=== PATIENT | male | born 1940 | race Caucasian/White ===

== ENCOUNTER 2017-09-18 22:17 | Emergency (ER) | payer MEDICARE ==
--- NOTE | 2017-09-18 23:29 | RAD ---
RIGHT SHOULDER RADIOGRAPHS THREE VIEWS 09/18/17 PROVIDED CLINICAL HISTORY: Right shoulder pain status post injury. FINDINGS: There is a mildly comminuted obliquely oriented fracture of the right distal clavicle distal to the c oracoclavicular ligaments. No additional fracture is evident. The glenohumeral relationship appears n ormal. Remote right sided rib fractures are seen. There is displacement of the distal clavicular frag ment by about one shaft width cranially with respect to the proximal fragment. IMPRESSION: Right clavicular fracture. POS: [facility]
--- NOTE | 2017-09-18 23:58 | CT ---
CT BRAIN 09/18/17 PROVIDED CLINICAL HISTORY: Fall. FINDINGS: Comparison is made with the study dated 10/28/14. The ventricular system appears normal in size and morphology. There is no evidence for intracranial h emorrhage or mass effect. The extracranial soft tissues and osseous structures demonstrate no acute a bnormality. IMPRESSION: No evidence for intracranial hemorrhage or mass effect. POS: [facility]
== END 2017-09-19 00:35 | disposition home or self-care (01) ==
LOC: ERS 22:17
DX: S42.031A Displaced fracture of lateral end of right clavicle, initial encounter for closed fracture (principal); I48.91 Unspecified atrial fibrillation; E11.9 Type 2 diabetes mellitus without complications; I10 Essential (primary) hypertension; Z79.4 Long term (current) use of insulin; W19.XXXA Unspecified fall, initial encounter
CPT/HCPCS: 70450

== ENCOUNTER 2017-10-01 10:07 | Outpatient (CLI) | payer MEDICARE | END 2017-10-01 10:08 | disposition home or self-care (01) | LOC: BICRAD 10:07 | PROVIDERS: ATTEND Specialist | DX: M25.511 Pain in right shoulder (principal); S43.004A Unspecified dislocation of right shoulder joint, initial encounter; W19.XXXA Unspecified fall, initial encounter ==

== ENCOUNTER 2018-04-01 13:22 | Outpatient (CLI) | payer MEDICARE ==
--- NOTE | 2018-04-01 15:29 | ULT ---
ARTERIAL DUPLEX SONOGRAM BILATERAL LOWER EXTREMITIES: HISTORY: Vascular disease. Poor wound healing. Claudication. FINDINGS: Good color and spectral Doppler flow are present. RIGHT: Triphasic waveform with no abnormally elevated peak systolic velocities within the common femoral and deep femoral and femoral arteries. Biphasic waveform within the popliteal, anterior tibial, dorsali s pedis, and posterior tibial arteries. LEFT: Triphasic waveform without abnormally elevated peak systolic velocities in the common femoral, deep f emoral, and femoral arteries. Biphasic waveform within the popliteal artery. Monophasic flow within the anterior tibial and dorsalis pedis arteries. Posterior tibia not well visualized. IMPRESSION: Good arterial flow within each lower extremity. Dampened pulsatility distally suggest s mall-vessel disease. POS: [facility]
== END 2018-04-01 13:23 | disposition home or self-care (01) ==
LOC: ULT 13:22
PROVIDERS: ATTEND Specialist
DX: I70.213 Atherosclerosis of native arteries of extremities with intermittent claudication, bilateral legs (principal)
CPT/HCPCS: 93923

== ENCOUNTER 2018-04-18 10:27 | Outpatient (CLI) | payer MEDICARE | END 2018-04-18 10:28 | disposition home or self-care (01) | LOC: BICRAD 10:27 | PROVIDERS: ATTEND Specialist | DX: S90.112A Contusion of left great toe without damage to nail, initial encounter (principal) ==

== ENCOUNTER 2018-12-18 11:57 | Emergency (ER) | payer MEDICARE ==
[2018-12-18] MEDS ORDERED: Metoprolol Tartrate 5 MG/5 ML VIAL ONE (12:58)
[2018-12-18] MEDS ORDERED: Digoxin 0.5 MG/2 ML AMP ONE (12:58)
[2018-12-18] MEDS ORDERED: Metoprolol Tartrate 50 MG TAB ONE (12:58)
--- NOTE | 2018-12-20 17:36 | EKG ---
Test Reason : Blood Pressure : / mmHG Vent. Rate : 138 BPM Atrial Rate : 125 BPM P-R Int : 000 ms QRS Dur : 140 ms QT Int : 350 ms P-R-T Axes : 000 049 005 degrees QTc Int : 530 ms Atrial fibrillation with rapid ventricular response Right bundle branch block Abnormal ECG Confirmed by OTILIA RAMIREZ, ANDREAS ([id number]), photograph editor ISHAAN MIR ([id number]) on 12/20/2018 5:35:50 PM Referred By: Confirmed By:ANDREAS BINGHAM MD
== END 2018-12-18 15:05 | disposition home or self-care (01) ==
LOC: ERS 11:57
DX: I48.2 Chronic atrial fibrillation (principal); I10 Essential (primary) hypertension; E11.9 Type 2 diabetes mellitus without complications; Z79.4 Long term (current) use of insulin; Z79.899 Other long term (current) drug therapy
CPT/HCPCS: 93005; 96374; 96375; J1160

== ENCOUNTER 2019-01-05 11:20 | Observation (INO) | payer MEDICARE ==
[2019-01-05 11:55] LABS: #Basophils 0.1 thou/uL (0.0-0.2); #Eosinphils 0.1 thou/uL (0.0-0.7); #Lymphocytes 2.6 thou/uL (1.20-3.40); #Monocytes 0.8 thou/uL (0.11-0.59); #Neutrophils 4.6 thou/uL (1.40-6.50); %Basophils 0.9 % (0.0-1.0); %Eosinophils 1.4 % (0.0-10.0); %Lymphocytes 31.5 % (21.0-51.0); %Neutrophils 56.2 % (42.0-75.0); Hemoglobin 14.3 g/dL (14.0-18.0); Mean Corpuscular HGB CONC 32.5 g/dL (32.0-36.0); Mean Corpuscular Hemoglobin 30.2 pg (27.0-31.0); Mean Corpuscular Volume 92.8 fL (78.0-98.0); Mean Platelet Volume 9.1 fL (7.4-10.4); Platelet Count 160 thou/uL (130-400); RBC Distribution Width 13.4 % (11.5-14.5); Red Blood Cell (RBC) Count 4.75 mill/uL (4.70-6.10); White Blood Cell (WBC) Count 8.2 thou/uL (4.8-10.8)
[2019-01-05 12:30] LABS: ALT (SGPT) 21 U/L (8-55); AST (SGOT) 17 U/L (5-34); Albumin 3.5 g/dL (3.4-4.8); Alkaline Phosphatase 86 U/L (40-150); Anion Gap 16 mmol/L (10-20); BUN (Urea Nitrogen) 24 mg/dL (8.4-25.7); Bilirubin, Total 0.7 mg/dL (0.2-1.2); CK (CPK) 90 U/L (30-200); Calc. Creatinine Clearance 0 mL/min (70-130); Calcium 9.4 mg/dL (7.8-10.44); Carbon Dioxide 26 mmol/L (23-31); Chloride 97 mmol/L (98-107); Estimated GFR-MDRD 27; Globulin 3.3 g/dL (2.4-3.5); Glucose 312 mg/dL (83-110); Potassium 4.6 mmol/L (3.5-5.1); Protein, Total 6.8 g/dL (5.8-8.1); Sodium 134 mmol/L (136-145)
--- NOTE | 2019-01-05 12:33 | RAD ---
FExam: Chest one view HISTORY:Chest pain Comparison: 03/11/2016 FINDINGS: Lungs: Bilateral, generalized interstitial prominence Cardiac silhouette:Enlarged cardiac silhouette Pulmonary vessels: Engorged Pleural Spaces: Mild pleural-based density at each inferior hemithorax Pneumothorax: None Left side cardiac pacing device remains. Osseous abnormalities: Chronic posttraumatic deformity of lateral right clavicle. Chronic posterior M attix quell involving lateral right ribs. IMPRESSION: Findings indicate CHF with associated pulmonary edema Mild bilateral pleural fluid is not excluded.
[2019-01-05 12:46] LABS: CKMB 1.6 ng/mL (0-6.6)
[2019-01-05] MEDS ORDERED: Aspirin Chewable 81 MG TAB ONE (13:10)
[2019-01-05] MEDS ORDERED: Enoxaparin Sodium 100 MG/ML SYRINGE ONE (13:10)
[2019-01-05 16:04] LABS: Troponin I 0.025 ng/mL (< 0.028)
[2019-01-05] MEDS ORDERED: Nitroglycerin 0.4 MG TAB (25 Tab Bottle) ONE (19:00)
[2019-01-05] MEDS ORDERED: Nitroglycerin 0.4 MG TAB (25 Tab Bottle) SL PRN (21:13)
[2019-01-05] MEDS ORDERED: Dextrose 5% in Water 1,000 ML IV PRN (21:20)
[2019-01-05] MEDS ORDERED: Dextrose 50% Abboject 50 ML SYRINGE IVP PRN (21:20)
[2019-01-05] MEDS ORDERED: Insulin Glargine 30 UNITS in Pre-Filled Syringe 1 EACH SC SCH (21:30)
[2019-01-05] MEDS: traMADol HCl 50 MG TAB PO PRN (22:16)
--- NOTE | 2019-01-06 02:46 | HP ---
CHIEF COMPLAINT ON ADMISSION: Chest pain. HISTORY OF PRESENT ILLNESS: The patient is a 78-year-old male with diabetes and known coronary artery disease, having had a 5-vessel bypass back in [address] Kline. This chest pain began on the day prior to admission, radiating to his jaw and both arms. It was relieved by nitroglycerin and then the episode would repeat itself up to 5 times on that day. On the day of admission, he had 3 episodes, but he had woke up with blurry vision in his left eye. He had gone to Dr. Hernandez's office for evaluation and they referred him to the ER once he told history of the chest pain and the vision changes. He reports 30% vision reduction in his left eye. They had no other explanation for that. 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 Trying to get that under control, he stopped steroid therapy for that several days ago. He has seen Dr. Oh several weeks ago and began on what sounds like metoprolol and digoxin, but he states he has been uncomfortable taking his medicines and has stopped them. His initial enzymes are negative and so he is placed in observation for further workup and cardiology consultation. PAST MEDICAL HISTORY: As mentioned above, coronary artery disease, atrial fibrillation, insulin-dependent diabetes, hypertension, pemphigus, angina, GERD, BPH, history of renal insufficiency, obstructive sleep apnea, diabetic peripheral neuropathy. PAST SURGICAL HISTORY: Includes the aforementioned 5-vessel coronary artery bypass done in [address] Kline. He has also had an uvulopalatoplasty, upper and lower gastroendoscopy, cystoscopy, pacemaker placement in 2006. He also had 2 heart ablations and a stent placed in 02/29/2016. SOCIAL HISTORY: He is . 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 He does not smoke or drink alcoholic beverages. ALLERGIES: HE HAS ALLERGIES TO CODEINE SULFATE AND SULFUR. MEDICATIONS ON ADMISSION: Include; 1. Furosemide 40 mg every Saturday, Saturday, Saturday. 2. Imdur 120 mg q.a.m. 3. Carvedilol 25 mg b.i.d. 4. Diltiazem 60 mg t.i.d. 5. Aspirin 81 mg daily. 6. Hydroxyzine 50 mg q.i.d. 7. Levemir 30 units subcu at bedtime. 8. NovoLog Pen 5 to 20 units before meals. 9. Hydroxyzine 25 mg two tabs at bedtime. 10. Ferrous sulfate 325 daily. REVIEW OF SYSTEMS: GENERAL: He denies chills, fever, but he has been easily fatigued and dyspneic with minimal exertion. HEENT: Eyes, he reports diminished vision about 30% in his left eye. No drainage, ulcerations, or pain from ears, nose, or throat. CHEST: Has shortness of breath with exertion, but denies cough or wheezing. CARDIOVASCULAR: He is having substernal chest pain radiating to his jaw and his arm. Denies palpitations. GI: Denies nausea, vomiting, diarrhea. : Denies dysuria, blood in urine or stool or urinary frequency. MUSCULOSKELETAL: Reports back pain with diffuse arthritis in hands and joints. SKIN: Diffuse bullous rash with blisters that pop up at pressure points, diagnosed as pemphigus. NEUROLOGIC: Denies confusion, trouble with mentation, paresthesias, hypesthesias, anesthesias. ENDOCRINE: He has no polydipsia, polyuria with blood sugars have been running around 200. PHYSICAL EXAMINATION: At the time of admission, VITAL SIGNS: Blood pressure 124/58, pulse 80, respirations 20, temperature 98 with pain scale 0. O2 saturation 98% on room air. GENERAL: This is a well-developed, well-nourished, male, alert, oriented, and cooperative. HEENT: Normocephalic, atraumatic. Pupils with diminished reactivity to light at 2 mm each. Arcus senilis bilaterally. TMs, nares, and pharynx are clear. NECK: Supple. Trachea midline. No mass. No bruit. BACK: Straight, nontender. CHEST: Clear to auscultation. HEART: Regular rate and rhythm without murmur. ABDOMEN: Soft, nontender, unable to appreciate organomegaly. : Deferred. EXTREMITIES: Without clubbing, cyanosis, or edema. There is normal range of motion present. SKIN: With the aforementioned bullous rash in different areas, mainly on his buttocks at this time, bullous in nature blisters. NEURO: Cranial nerves are intact. Gait and cerebellar function intact. Sensory exam is intact except for paresthesias up to his mid lower leg on both legs. LABORATORY DATA: On exam, WBC 8.2, hemoglobin 14.3, hematocrit 44.1, platelets at 160. Sodium 134, potassium 4.6, chloride 97, BUN 24, creatinine 2.33 with a GFR of 27, glucose at 312 on admission. BNP slightly elevated at 266. Troponin I is slightly elevated at 0.03 x2. Liver functions normal. EKG shows no change from old EKGs. ASSESSMENT: 1. Angina, stable and usually related to exertion. 2. History of coronary artery disease. 3. Insulin-dependent diabetes. 4. Hypertension. 5. Pemphigus. PLAN: Will be echocardiogram, consultation with Cardiology, nitroglycerin sublingual p.r.n., and serial re-evaluation. We may need neurological consultation to further evaluate his visual loss. Job ID: [id number] [facility]
[2019-01-06 05:21] LABS: Hemoglobin A1c 8.1 % (4.0-6.0)
[2019-01-06 05:25] LABS: Anion Gap 10 mmol/L (10-20); BUN (Urea Nitrogen) 22 mg/dL (8.4-25.7); Calc. Creatinine Clearance 43 mL/min (70-130); Calcium 8.6 mg/dL (7.8-10.44); Carbon Dioxide 30 mmol/L (23-31); Chloride 101 mmol/L (98-107); Estimated GFR-MDRD 31; Glucose 217 mg/dL (83-110); Sodium 137 mmol/L (136-145)
[2019-01-06] MEDS: Aspirin Chewable 81 MG TAB PO SCH (08:46)
[2019-01-06] MEDS: hydrOXYzine 25 MG TAB PO SCH ×4 (08:46→20:42)
[2019-01-06] MEDS ORDERED: Carvedilol 25 MG TAB PO SCH (09:00)
[2019-01-06] MEDS: traMADol HCl 50 MG TAB PO PRN ×2 (10:26→17:11)
--- NOTE | 2019-01-06 10:58 | CON ---
DATE OF CONSULTATION: 01/06/2019 REASON FOR ADMISSION: Unstable angina, refractory angina. HISTORY OF PRESENT ILLNESS: Mr. Pascual is a very pleasant 78-year-old gentleman with a long history of coronary disease. The patient ultimately did undergo cardiac bypass surgery x5 in 2016. He unfortunately continued to have angina following that and was found to have stenosis in a ramus branch of a mis-branch graft and also diffuse distal disease. He underwent stent implantation of the ramus vein graft, but continued to have angina. The patient has had angina off and on over the years of various intensities. Recently, he was found to have a very rapid heart rate. He was asked to go on metoprolol and diltiazem, but the pain apparently persisted and he thought the medicine was causing the angina. Therefore, he stopped taking those medicines a few days ago. He presented to our office yesterday complaining of pain at rest and was sent to the emergency room. PAST HISTORY: 1. Chronic atrial fibrillation, has declined anticoagulation. He understands stroke risk. 2. Previous pacemaker insertion. 3. Previous bypass. 4. Previous stent implantation. MEDICATIONS: At home, he was not taking the diltiazem, digoxin, metoprolol or carvedilol on a routine basis. He was taking the aspirin. ALLERGIES: SULFA. OTHER PAST HISTORY: Renal insufficiency. REVIEW OF SYSTEMS: CONSTITUTIONAL: No significant weight gain or loss. HEENT: Vision, no changes. Hearing, no changes. PULMONARY: No cough or wheezing. GASTROINTESTINAL: No nausea, vomiting, or diarrhea. SKIN: No rashes. NEUROLOGIC: No unilateral weakness or numbness. PSYCHIATRIC: No unusual depression or anxiety. FAMILY HISTORY: Negative for heart disease at a young age. PHYSICAL EXAMINATION: GENERAL: This is a delightful gentleman, in no distress. VITAL SIGNS: Blood pressure 176/90, pulse 100 to 110 at rest with atrial fibrillation. LUNGS: Clear. CARDIAC: Irregularly irregular. ABDOMEN: Soft, nontender. EXTREMITIES: No clubbing or cyanosis. There is no edema. PERTINENT LABORATORY DATA: Creatinine is 2.05. Troponin 0.030, indeterminate. EKG, right bundle branch block, atrial fibrillation with rapid rate. ASSESSMENT: 1. Previous bypass surgery. 2. Renal failure, which is varying between stage 3 to 4. 3. Diabetes. 4. Diffuse distal disease. PLAN: 1. Resume metoprolol. 2. He says carvedilol drop his blood pressure too low and makes him feel dizzy. 3. Echocardiogram pending. 4. Continue diltiazem. 5. Discussed repeat catheterization. Discussed there would be some risk of renal insufficiency or injury to his kidneys. It is unclear how much further benefit can be obtained for percutaneous therapy. Therefore, he does decline that at this point. 6. Continue aspirin. 7. We will follow with you. 8. The patient does not wish to have catheterization unless he has just intractable angina. Does not agree to catheterization at this point. We will continue to follow with you. Job ID: [id number]
[2019-01-06] MEDS: Insulin Regular 300 UNITS/3 ML VIAL SC PRN ×2 (11:32→17:04)
[2019-01-06] MEDS: Insulin Glargine 30 UNITS in Pre-Filled Syringe 1 EACH SC SCH (20:42)
[2019-01-07] MEDS: traMADol HCl 50 MG TAB PO PRN ×2 (04:08→23:16)
[2019-01-07] MEDS: hydrOXYzine 25 MG TAB PO SCH ×4 (09:40→20:33)
[2019-01-07] MEDS: Aspirin Chewable 81 MG TAB PO SCH (09:40)
[2019-01-07] MEDS ORDERED: Communication Order-Pharmacy FS SCH (17:15)
[2019-01-07] MEDS: Sodium Chloride 0.9% 1,000 ML IV SCH (17:30)
--- NOTE | 2019-01-07 17:49 | PRG ---
DATE OF SERVICE: 01/07/2019 SUBJECTIVE: Mr. Pascual had recurrent jaw pain at rest early this morning. He required nitroglycerin and also pain medicine for resolution. His heart rate apparently was not elevated at that time. The patient continues to have resting angina. OBJECTIVE: VITAL SIGNS: His blood pressure 158/87, pulse is 70 to 100, atrial fibrillation. LUNGS: Clear. CARDIAC: Irregularly irregular. ABDOMEN: Soft and nontender. ASSESSMENT: 1. Previous bypass surgery. 2. Previous stent implantation. 3. History of renal failure stage 3 to 4. Did have some worsening renal function following cardiac catheterization in 2016. Creatinine went as high as 2.74. PLAN: 1. He is going to receive intravenous fluids. 2. Proceed to cardiac catheterization in view of the intractable angina. He understands risks including renal failure, stroke, heart attack, iodine allergy, loss of blood supply to leg or kidney, stent thrombosis, stent restenoses. He understands and wishes to proceed. He understands this is a difficult situation. Job ID: [id number]
[2019-01-07] MEDS: Insulin Glargine 30 UNITS in Pre-Filled Syringe 1 EACH SC SCH (20:34)
[2019-01-08] MEDS: Sodium Chloride 0.9% 1,000 ML IV SCH ×2 (05:34→18:45)
[2019-01-08] MEDS: Aspirin Chewable 81 MG TAB PO SCH (05:36)
[2019-01-08] MEDS: hydrOXYzine 25 MG TAB PO SCH ×4 (05:36→21:35)
[2019-01-08] MEDS ORDERED: Fentanyl 100 MCG/2 ML VIAL ONE (07:34)
[2019-01-08] MEDS ORDERED: Midazolam HCl 2 mg/2 ml Vial ONE (07:34)
[2019-01-08] MEDS ORDERED: Diazepam 5 MG TAB PO SCH (08:00)
[2019-01-08] MEDS ORDERED: Sodium Chloride 0.9% 200 ML IV PRN (08:24)
[2019-01-08] MEDS ORDERED: Nitroglycerin 0.4 MG TAB (25 Tab Bottle) SL PRN (08:24)
[2019-01-08] MEDS ORDERED: Iopamidol 370 76% 100 ML VIAL ONE (10:19)
[2019-01-08] MEDS: Insulin Regular 300 UNITS/3 ML VIAL SC PRN (12:04)
[2019-01-08] MEDS: traMADol HCl 50 MG TAB PO PRN (13:11)
[2019-01-08] MEDS ORDERED: Sodium Chloride 0.9% 250 ML 200 ML IVPB SCH (14:15)
[2019-01-08] MEDS ORDERED: Insulin Glargine 35 UNITS in Pre-Filled Syringe 1 EACH SC SCH (21:00)
[2019-01-09 05:19] LABS: Anion Gap 11 mmol/L (10-20); BUN (Urea Nitrogen) 17 mg/dL (8.4-25.7); Calc. Creatinine Clearance 53 mL/min (70-130); Calcium 8.7 mg/dL (7.8-10.44); Carbon Dioxide 27 mmol/L (23-31); Chloride 103 mmol/L (98-107); Estimated GFR-MDRD 40; Glucose 176 mg/dL (83-110); Potassium 4.2 mmol/L (3.5-5.1); Sodium 137 mmol/L (136-145)
[2019-01-09 08:11] VITALS: BP 170/93; TEMP 98.1
[2019-01-09] MEDS: hydrOXYzine 25 MG TAB PO SCH (09:46)
[2019-01-09] MEDS: Aspirin Chewable 81 MG TAB PO SCH (09:46)
--- NOTE | 2019-01-10 09:49 | EKG ---
Test Reason : Blood Pressure : / mmHG Vent. Rate : 108 BPM Atrial Rate : 117 BPM P-R Int : 000 ms QRS Dur : 140 ms QT Int : 332 ms P-R-T Axes : 000 -79 084 degrees QTc Int : 444 ms Atrial fibrillation with rapid ventricular response Left axis deviation Right bundle branch block -complete T wave abnormality, consider lateral ischemia Abnormal ECG Doubt ST elevation/WI Confirmed by AUGUSTUS RAMIREZ, RYAN Brandon ([id number]), photo editor RAMONA STEVENS ([id number]) on 01/10/2019 9:48:41 AM Referred By: Confirmed By:RYAN COFFMAN MD
== END 2019-01-09 12:20 | disposition home or self-care (01) ==
LOC: ERS 11:20 → ERHOLD 13:00 → 2SW 16:39
PROVIDERS: ADMIT Specialist; ATTEND Specialist
PROC: 4A023N7 Measurement of Cardiac Sampling and Pressure, Left Heart, Percutaneous Approach (ICD-10-PCS; principal; 2019-01-08)
PROC: B2111ZZ Fluoroscopy of Multiple Coronary Arteries using Low Osmolar Contrast (ICD-10-PCS; 2019-01-08)
PROC: B2131ZZ Fluoroscopy of Multiple Coronary Artery Bypass Grafts using Low Osmolar Contrast (ICD-10-PCS; 2019-01-08)
PROC: B2181ZZ Fluoroscopy of Left Internal Mammary Bypass Graft using Low Osmolar Contrast (ICD-10-PCS; 2019-01-08)
DX: I25.118 Atherosclerotic heart disease of native coronary artery with other forms of angina pectoris (principal); I25.82 Chronic total occlusion of coronary artery; I10 Essential (primary) hypertension; K21.9 Gastro-esophageal reflux disease without esophagitis; E11.42 Type 2 diabetes mellitus with diabetic polyneuropathy; N40.0 Benign prostatic hyperplasia without lower urinary tract symptoms; I48.91 Unspecified atrial fibrillation; G47.33 Obstructive sleep apnea (adult) (pediatric); Z79.4 Long term (current) use of insulin; Z79.82 Long term (current) use of aspirin; Z79.899 Other long term (current) drug therapy; Z88.2 Allergy status to sulfonamides; Z88.5 Allergy status to narcotic agent; Z98.890 Other specified postprocedural states; Z95.5 Presence of coronary angioplasty implant and graft
CPT/HCPCS: 71045; 76942; 80048 ×2; 80053; 82550; 82553; 82962 ×5; 83036; 83880; 84443; 84484 ×2; 85025; 93005; 93306; 93459; 94760; 96360; 96361 ×2; 96372; 99285; C1769; G0378 ×3; 36415; 36416; 99152; 99153; J1650; J1815; J1825; J2250; J3010; Q9967

== ENCOUNTER 2019-02-10 14:38 | Emergency (ER) | payer MEDICARE ==
[2019-02-10 17:40] LABS: #Basophils 0.1 thou/uL (0.0-0.2); #Eosinphils 0.1 thou/uL (0.0-0.7); #Lymphocytes 1.6 thou/uL (1.20-3.40); #Neutrophils 7.5 thou/uL (1.40-6.50); %Basophils 0.5 % (0.0-1.0); %Lymphocytes 15.7 % (21.0-51.0); %Monocytes 9.3 % (0.0-10.0); %Neutrophils 73.4 % (42.0-75.0); Hemoglobin 12.7 g/dL (14.0-18.0); Mean Corpuscular HGB CONC 33.3 g/dL (32.0-36.0); Mean Corpuscular Hemoglobin 30.9 pg (27.0-31.0); Mean Corpuscular Volume 92.9 fL (78.0-98.0); Mean Platelet Volume 8.7 fL (7.4-10.4); Platelet Count 213 thou/uL (130-400); RBC Distribution Width 12.6 % (11.5-14.5); White Blood Cell (WBC) Count 10.2 thou/uL (4.8-10.8)
--- NOTE | 2019-02-10 17:48 | RAD ---
RADIOGRAPH CHEST 1 VIEW: DATE: 02/10/2019 TIME: 5:34 PM HISTORY: Chest pain and cough with dyspnea COMPARISON: 01/05/2019 FINDINGS: Sternotomy wires. Cardiomegaly. Left subclavian dual lead pacemaker. Ectasia and tortuosity of thorac ic aorta. Pulmonary venous engorgement appears minimally worse now than before. Mild bilateral interstitial densities, especially lower lung zones, appear slightly worse now. Multiple old right ri b fracture deformities. No pneumothorax. IMPRESSION: 1. Evidence for at least mild congestive heart failure, possibly worsened compared to 01/05/2019. 2. Evidence of previous open-heart surgery. 3. Pacemaker .
[2019-02-10 17:55] LABS: ALT (SGPT) 9 U/L (8-55); AST (SGOT) 12 U/L (5-34); Albumin 3.6 g/dL (3.4-4.8); Alkaline Phosphatase 82 U/L (40-150); Anion Gap 13 mmol/L (10-20); BUN (Urea Nitrogen) 22 mg/dL (8.4-25.7); Bilirubin, Total 1.2 mg/dL (0.2-1.2); Calc. Creatinine Clearance 0 mL/min (70-130); Calcium 9.1 mg/dL (7.8-10.44); Carbon Dioxide 26 mmol/L (23-31); Chloride 97 mmol/L (98-107); Estimated GFR-MDRD 33; Globulin 3.8 g/dL (2.4-3.5); Glucose 252 mg/dL (83-110); Potassium 4.5 mmol/L (3.5-5.1); Protein, Total 7.4 g/dL (5.8-8.1); Sodium 131 mmol/L (136-145)
[2019-02-10] MEDS ORDERED: Furosemide 40 MG TAB ONE (20:52)
--- NOTE | 2019-02-14 10:31 | EKG ---
Test Reason : CP Blood Pressure : / mmHG Vent. Rate : 086 BPM Atrial Rate : 468 BPM P-R Int : 000 ms QRS Dur : 162 ms QT Int : 392 ms P-R-T Axes : 000 020 013 degrees QTc Int : 469 ms Atrial fibrillation with premature ventricular or aberrantly conducted complexes Right bundle branch block T wave abnormality, consider lateral ischemia Abnormal ECG Confirmed by LAVERNE NEWMAN ([id number]), associate entertainment editor RAMONA STEVENS ([id number]) on 02/14/2019 10:31:16 AM Referred By: Confirmed By:LAVERNE NEWMAN
== END 2019-02-10 21:13 | disposition home or self-care (01) ==
LOC: ERS 14:38
DX: I11.0 Hypertensive heart disease with heart failure (principal); I50.9 Heart failure, unspecified; E11.9 Type 2 diabetes mellitus without complications; I25.10 Atherosclerotic heart disease of native coronary artery without angina pectoris; I48.91 Unspecified atrial fibrillation; Z79.4 Long term (current) use of insulin
CPT/HCPCS: 36415; 71045; 80053; 83880; 84484; 85025; 87804; 93005; 94640; J7620

== ENCOUNTER 2019-02-12 09:19 | Inpatient (IN) | payer MEDICARE ==
--- NOTE | 2019-02-12 09:49 | RAD ---
EXAM: Single view of the chest HISTORY: Chest pain; atrial fibrillation COMPARISON: 02/10/2019 FINDINGS: Single view of the chest shows an enlarged but stable cardiomediastinal silhouette. The pa cemaker is unchanged in position. The patient is status post sternotomy. Chronic interstitial lung markings are present. There is no evidence of consolidation, mass, or pleural effusion. The bones are unremarkable. IMPRESSION: Cardiomegaly without evidence of acute cardiopulmonary disease
[2019-02-12 09:53] LABS: #Basophils 0.1 thou/uL (0.0-0.2); #Eosinphils 0.4 thou/uL (0.0-0.7); #Lymphocytes 1.3 thou/uL (1.20-3.40); #Neutrophils 7.3 thou/uL (1.40-6.50); %Basophils 0.6 % (0.0-1.0); %Eosinophils 4.1 % (0.0-10.0); %Lymphocytes 13.1 % (21.0-51.0); %Monocytes 9.6 % (0.0-10.0); %Neutrophils 72.7 % (42.0-75.0); Hemoglobin 12.3 g/dL (14.0-18.0); Mean Corpuscular HGB CONC 33.2 g/dL (32.0-36.0); Mean Corpuscular Hemoglobin 30.9 pg (27.0-31.0); Mean Platelet Volume 8.9 fL (7.4-10.4); Platelet Count 208 thou/uL (130-400); RBC Distribution Width 12.4 % (11.5-14.5); Red Blood Cell (RBC) Count 3.97 mill/uL (4.70-6.10)
[2019-02-12 10:18] LABS: ALT (SGPT) 10 U/L (8-55); AST (SGOT) 21 U/L (5-34); Albumin 3.5 g/dL (3.4-4.8); Alkaline Phosphatase 84 U/L (40-150); Anion Gap 18 mmol/L (10-20); BUN (Urea Nitrogen) 25 mg/dL (8.4-25.7); Bilirubin, Total 1.1 mg/dL (0.2-1.2); Calc. Creatinine Clearance 0 mL/min (70-130); Calcium 9.1 mg/dL (7.8-10.44); Carbon Dioxide 24 mmol/L (23-31); Chloride 99 mmol/L (98-107); Estimated GFR-MDRD 30; Globulin 3.5 g/dL (2.4-3.5); Glucose 245 mg/dL (83-110); Potassium 4.9 mmol/L (3.5-5.1); Sodium 136 mmol/L (136-145)
[2019-02-12 10:37] LABS: CKMB 1.1 ng/mL (0-6.6)
[2019-02-12 11:10] LABS: Digoxin 1.14 ng/mL (0.8-2.0)
[2019-02-12] MEDS ORDERED: Metoprolol Tartrate 5 MG/5 ML VIAL ONE ×2 (11:58→11:59)
[2019-02-12 13:21] LABS: Troponin I 0.089 ng/mL (< 0.028)
[2019-02-12 14:13] VITALS: BMI 29.7
[2019-02-12] MEDS ORDERED: Acetaminophen 325 MG TAB PO PRN (14:32)
[2019-02-12] MEDS ORDERED: Ondansetron ODT 4 MG TAB SL PRN (14:32)
[2019-02-12] MEDS ORDERED: Ondansetron PF 4 MG/2 ML Vial IVP PRN (14:32)
[2019-02-12] MEDS ORDERED: Dextrose 50% Abboject 50 ML SYRINGE IVP PRN (15:26)
[2019-02-12] MEDS ORDERED: Dextrose 5% in Water 1,000 ML IV PRN (15:26)
[2019-02-12 16:27] LABS: Troponin I 0.147 ng/mL (< 0.028)
[2019-02-12] MEDS: Insulin Regular 300 UNITS/3 ML VIAL SC PRN ×2 (17:49→22:19)
--- NOTE | 2019-02-12 19:20 | PRG ---
DATE OF SERVICE: 02/12/2019 SUBJECTIVE: Mr. Pascual presents to the hospital with recurrent chest pressure and pain in both arms. The emergency room physician indicated to me the patient is having heart rate to 150, although in the chart I do not see documentation of that. He is resting comfortably now. OBJECTIVE: VITAL SIGNS: His blood pressure 160/76 and pulse is in the 80s, it is irregular. LUNGS: Clear. CARDIAC: Irregularly irregular. ABDOMEN: Soft and nontender. EXTREMITIES: No edema. ASSESSMENT: 1. Coronary artery disease, previous bypass surgery, medical therapy is the only option. 2. Declined anticoagulation. 3. ? Rapid rates. PLAN: 1. Interrogate the device tomorrow. 2. Increase beta blockers and Cardizem. 3. If unable to control the heart rate, the other option would be to consider biventricular pacemaker insertion followed by AV junction ablation in view of the history of heart failure. Job ID: [id number]
[2019-02-12] MEDS ORDERED: Labetalol HCl 100 MG/20 ML VIAL ONE (20:48)
[2019-02-12] MEDS ORDERED: hydrOXYzine 25 MG TAB PO PRN (21:54)
[2019-02-12] MEDS ORDERED: Nitroglycerin 0.4 MG TAB 1 EACH SL PRN (21:56)
[2019-02-12] MEDS ORDERED: Carvedilol 6.25 MG TAB PO SCH (22:00)
[2019-02-13] MEDS: Ondansetron PF 4 MG/2 ML Vial SLOW IVP PRN (01:18)
[2019-02-13] MEDS: hydrALAZINE 20 MG/ML VIAL SLOW IVP PRN (02:04)
--- NOTE | 2019-02-13 02:51 | HP ---
CHIEF COMPLAINT: Chest pain. HISTORY OF PRESENT ILLNESS: The patient is a 78-year-old male with a history of atrial fibrillation and cardiac ablation, presenting to the ED via EMS with complaints of chest pain and rapid heart rate, that began about early this morning after taking an albuterol metered-dose inhaler treatment for dyspnea. His heart began to race. He began to get more short-winded and then began to have substernal chest pain. It was alleviated somewhat by the time he arrived at the ER. EMS had given him a 324 aspirin and some Cardizem en route. His heart rate was between 150 to 160. He also had palpitations, shortness of breath, and mild diaphoresis. No nausea or vomiting. PAST MEDICAL HISTORY: Includes, cardiac history, hospitalized in less than a month ago for angina where medical therapy was opted, coronary artery disease, arrhythmia with atrial fibrillation; type 2 diabetes, on insulin; hypertension, GERD, anxiety, pemphigus, angina, diabetic peripheral neuropathy, obstructive sleep apnea, BPH, renal insufficiency, and diabetic peripheral neuropathy. PAST SURGICAL HISTORY: Includes the aforementioned five-vessel coronary artery bypass [place] [address] Kline, uvulopalatoplasty, upper and lower gastroendoscopy, cystoscopy, pacemaker placement in 2006, two heart ablations and stent placed in February 2016. SOCIAL HISTORY: He is . 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 He does not smoke or drink alcoholic beverages. ALLERGIES: CODEINE AND SULFA. MEDICATIONS: On admission include; 1. Cardizem 60 mg t.i.d. 2. Imdur 120 mg daily. 3. Metoprolol succinate 50 mg b.i.d. 4. Lasix 20 mg q.a.m. 5. Aspirin 81 mg daily. 6. Hydroxyzine 50 mg q.i.d. p.r.n. itching. 7. Levemir 30 units subcu at bedtime. 8. NovoLog 5-20 units prior to meals. 9. Hydralazine 25 mg t.i.d. 10. Ferrous sulfate 325 mg a day. 11. Protonix 40 mg a day. 12. He also uses nitroglycerin sublingually when he has chest pain. REVIEW OF SYSTEMS: GENERAL: Denies fever, chills, but is significantly fatigued. HEENT: No sores or drainage from ear, nose, or throat. CHEST: With palpitations and pain. RESPIRATORY: Denies cough. He occasionally has dyspnea. GI: No nausea, vomiting, or diarrhea. : No blood in urine or stool or painful urination or frequency. MUSCULOSKELETAL: Has diffuse arthritis. SKIN: Has bullous lesions diffusely. Diagnosis of pemphigus. NEUROLOGIC: Denies trouble with mentation. He does have areas of anesthesia and hypoesthesia in the lower extremities. PHYSICAL EXAMINATION: At the time of admission, VITAL SIGNS: Blood pressure noted, pulse 93 and irregular, respirations 18, temperature 98.9. Pain scale 3/10. O2 saturation 93% on room air. GENERAL: This is an elderly male, alert, oriented, and cooperative. HEENT: Normocephalic, atraumatic. Pupils are equal, round, and reactive to light, 2-3 mm with diminished reactivity overall. Arcus senilis bilaterally. TMs, nares, and pharynx are clear. NECK: Supple. Trachea midline. No mass. CHEST: With good breath sounds bilaterally. HEART: Irregularly irregular without murmur. ABDOMEN: Mildly distended. No hepatosplenomegaly. Nontender. : Deferred. EXTREMITIES: Without clubbing, cyanosis, or edema. SKIN: With aforementioned bullous lesions diffusely in various stages of healing. NEUROLOGIC: Cranial nerves are intact. Gait and cerebral function are untested at this time. Sensory is grossly intact. There is neuropathy in the lower extremities with diminished sensation in the lower extremities. LABORATORY DATA: The lab on admission showed WBCs 10, hemoglobin 12.3, hematocrit 36.9 with platelets 208. Sodium is 136, potassium 4.9, chloride 99, CO2 of 24, BUN 25, creatinine 2.15 with a GFR of 30, glucose 245. Liver functions unremarkable. Troponins indeterminate from 0.029 up to 0.147. Chest x-ray shows cardiomegaly , but no acute process. ASSESSMENT: 1. Supraventricular tachycardia, currently suppressed with Cardizem drip. 2. Severe coronary artery disease with chronic, recurrent angina. 3. Insulin-dependent diabetes. 4. Hypertension. 5. Obstructive sleep apnea. 6. Severely dilated left atrium and mildly elevated pulmonary artery pressure per echocardiogram in December. PLAN: Increasing his dose of oral Cardizem. Cardiology consultation has already been obtained. We will serially re-evaluate him and maximize his medical treatment. 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 We will keep him comfortable as well as try to manage his blood sugars. Job ID: [id number] [email or web address]
[2019-02-13] MEDS: Insulin Regular 300 UNITS/3 ML VIAL SC PRN ×3 (04:30→17:16)
[2019-02-13 06:12] LABS: Anion Gap 10 mmol/L (10-20); BUN (Urea Nitrogen) 25 mg/dL (8.4-25.7); Calc. Creatinine Clearance 40 mL/min (70-130); Calcium 9.1 mg/dL (7.8-10.44); Carbon Dioxide 30 mmol/L (23-31); Chloride 98 mmol/L (98-107); Digoxin 1.26 ng/mL (0.8-2.0); Estimated GFR-MDRD 30; Glucose 304 mg/dL (83-110); Potassium 4.4 mmol/L (3.5-5.1); Sodium 134 mmol/L (136-145)
[2019-02-13 06:14] LABS: #Eosinphils 0.3 thou/uL (0.0-0.7); #Lymphocytes 1.2 thou/uL (1.20-3.40); #Monocytes 0.7 thou/uL (0.11-0.59); #Neutrophils 4.9 thou/uL (1.40-6.50); %Basophils 0.6 % (0.0-1.0); %Eosinophils 4.5 % (0.0-10.0); %Lymphocytes 16.4 % (21.0-51.0); %Monocytes 10.1 % (0.0-10.0); %Neutrophils 68.4 % (42.0-75.0); Hemoglobin 11.3 g/dL (14.0-18.0); Mean Corpuscular HGB CONC 32.6 g/dL (32.0-36.0); Mean Corpuscular Hemoglobin 30.1 pg (27.0-31.0); Mean Corpuscular Volume 92.2 fL (78.0-98.0); Mean Platelet Volume 9.3 fL (7.4-10.4); Platelet Count 209 thou/uL (130-400); RBC Distribution Width 12.3 % (11.5-14.5); Red Blood Cell (RBC) Count 3.76 mill/uL (4.70-6.10); White Blood Cell (WBC) Count 7.1 thou/uL (4.8-10.8)
[2019-02-13] MEDS: Digoxin 0.125 MG TAB PO SCH (08:48)
[2019-02-13] MEDS: Aspirin Chewable 81 MG TAB PO SCH (08:49)
[2019-02-13] MEDS: Spironolactone 25 MG TAB PO SCH (08:49)
[2019-02-13] MEDS: hydrALAZINE 25 MG TAB PO SCH ×3 (08:49→20:52)
[2019-02-13] MEDS: Carvedilol 6.25 MG TAB PO SCH ×2 (08:49→20:52)
[2019-02-13] MEDS: Sodium Chloride 0.9% (PF) 10 ML VIAL FS PRN (08:50)
[2019-02-13] MEDS: Pantoprazole 40 MG VIAL IVP SCH (08:50)
[2019-02-13] MEDS ORDERED: Diltiazem HCl CD 300 mg Capsule PO SCH (09:00)
--- NOTE | 2019-02-13 09:23 | PRG ---
DATE OF SERVICE: 02/13/2019 SUBJECTIVE: Mr. Pascual is feeling better today, but he does have a cough. He is not having chest pain, but he is in bed. OBJECTIVE: VITAL SIGNS: His heart rate is in the 90s even in supine and sometimes at 102 at rest. LUNGS: Clear. CARDIAC: Irregularly irregular. ABDOMEN: Soft, nontender. ASSESSMENT: 1. Atrial fibrillation, chronic, and rate very difficult to control. 2. History of diastolic congestive heart failure with increased BNP. 3. Coronary artery disease, medical therapy is the only option. 4. Diabetes. 5. Renal insufficiency, stage 3 to 4. Creatinine is at 2.15. PLAN: 1. Diltiazem has been increased. 2. He is on metoprolol. 3. He is on digoxin. 4. If the rate is not controlled, I would recommend consideration for AV junction ablation with the possibility of upgrading his pacemaker to a biventricular device. We will consult Dr. Bearden in case this is an ultimately necessary. I think, long-term, he probably will not be able to tolerate this high dose of diltiazem, will probably worsen his edema and heart failure. He would likely require upgrading his pacemaker to a biventricular device as he already has heart failure at the present time, even though his ejection fraction is within normal limits, he does clearly have diastolic heart failure. We will discuss with Dr. Bearden. Job ID: [id number]
--- NOTE | 2019-02-13 12:31 | PQF ---
DATE: 02-13-19 ATTN : DR. SEBASTIÁN ADAIR Please exercise your independent, professional judgment in responding to the clarification form. Clinical indicators are provided on the bottom of this form for your review Please check appropriate box(s): [ ] Acute Renal Failure (ARF) / Acute Kidney Injury (RACHEL) [ x ] Acute on Chronic Renal Failure please Specify Stage of CKD __III___ [ ] Other diagnosis [ ] Unable to determine In addition, please specify: Present on Admission (POA): [ ] Yes [ ] No [ ] Unable to determine National Kidney Foundation Guidelines for CKD Staging Stage I Kidney damage with normal or increased GFR GFR > 90 Stage II Kidney damage with mildly decreased GFR GFR 60-89 Stage III Kidney damage with moderately decreased GFR GFR 30- 59 Stage IV Kidney damage with severely decreased GFR GFR 16- 29 Stage V Kidney failure GFR<15 ESRD End Stage Renal Disease On dialysis Acute Renal Failure/Acute Kidney Failure defined as: Increases in SCr by (>) 0.3 mg/dl within 48 hours OR- Increases in SCr by (>) 1.5 times baseline, known or presumed to have occurred within the prior 7 days OR- Urine volume < 0.5 ml/kg/hour for 6 hours (KDIGO supplement 2012 for RIFLE/GERMAN criteria) For continuity of documentation, please document condition throughout progress notes and discharge summary. Thank You. CLINICAL INDICATORS - SIGNS / SYMPTOMS / LABS: GFR: 02-12-19: 30 02-13-19: 30 CREATININE: 02-12-19: 2.15 02-13-19: 2.15 BUN: 02-12-19: 25 02-13-19: 25 H&P: HX OF CAD, A FIB, DM 2, HTN, ANGINA, RENAL INSUFFICIENCY CONSULT NOTE DR. YOUNG 02-13-19: RENAL INSUFFICIENCY, STAGE 3 TO 4. RISK FACTORS: H&P: HX OF CAD, A FIB, DM 2, HTN, ANGINA, RENAL INSUFFICIENCY TREATMENTS: DAILY LABS (This form is maintained as a part of the permanent medical record) 2014 [employer], [employer]. All Rights Reserved [email or web address] Office: [phone] [facility]
--- NOTE | 2019-02-13 19:17 | CON ---
DATE OF CONSULTATION: 02/13/2019 I am seeing Mr. 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 His problems are, 1. Chronic atrial fibrillation. Recurrent atrial fibrillation, now persisting after multiple left atrial ablation procedures. 2. History of diastolic heart failure with preserved LVEF. A 2D echo from 01/07/2019 shows LVEF of 55% to 60%, severe left atrial enlargement, mild mitral regurgitation, [id number] tricuspid regurgitation, and mildly elevated pulmonary pressures. 3. Coronary artery disease, advanced. Left heart catheterization on 02/22/2016 shows 50% to 60% left main, diffuse LAD and diagonal with occluded SVG to diagonal, 99% ramus, and SVG to RCA 50% narrowed before the insertion site. LUCERO to LAD is patent with disease though. PTCA of the SVG to ramus intervened a 95% to 99% lesion. 4. CHADS-VASc score with heart failure, coronary vascular disease, age, hypertension, and diabetes, a total of 6. The patient is off anticoagulation on preference. 5. History of GERD. 6. History of obstructive sleep apnea. 7. History of renal insufficiency. 8. History of single-chamber pacemaker implantation. ALLERGIES: CODEINE AND SULFA. MEDICATIONS: At home included, 1. Cardizem. 2. Imdur. 3. Metoprolol succinate. 4. Lasix. 5. Aspirin. 6. Hydralazine. 7. Levemir. 8. NovoLog. SUBJECTIVE: Mr. Pascual is here with chest pain and rapid heart beatings started after his albuterol treatment. Heart began to race and had developed severe chest pains yesterday, and Cardizem was administered. Eventually, his heart rate has improved. He was treated with further diltiazem doses on top of his metoprolol and digoxin. Eventually, this morning he achieved some reasonable rate control. He is feeling better now. He has no more chest pains and he does not pass out. No stroke-like symptoms at this time. Denies bleeding issues. No fever, chills, or cough. Rest of 12-point system otherwise unremarkable. PAST MEDICAL HISTORY: As above. These include diabetic peripheral neuropathy, BPH, and anxiety. SOCIAL HISTORY: He is . 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 Denies smoking or the ETOH abuse. FAMILY HISTORY: Not contributory. OBJECTIVE DATA: VITAL SIGNS: Blood pressure is 137/61, heart rate is 78, respirations 18, and temperature 98.1 degrees Fahrenheit. GENERAL: He is alert and oriented man, in no apparent distress. NECK: Supple. Jugular vein is not distended. CHEST: Coarse without crackles. HEART: Sounds are irregularly irregular. S1 and S2 are variable. No murmur or gallop. ABDOMEN: Benign. Bowel sounds positive. EXTREMITIES: Lower extremities without edema, clubbing, or cyanosis. Pulses are adequate. NEUROLOGIC: The patient is nonfocal. MUSCULOSKELETAL: No joint swelling or deformity. SKIN: Without rash. The epicardial pacemaker insertion site is well healed. DATABASE: EKG is reviewed. It reveals initial atrial fibrillation with rapid rates with bifascicular block. Subsequent telemetry strips reveal atrial fibrillation with rate control, improving. Intermittent ventricular pacing is also noted. LABORATORY DATA: White cell count 7.4, hemoglobin 11.3, and platelet count is 209. Sodium 134, potassium 4.4, BUN is 25, and creatinine is 2.15. Digoxin level was 1.26. ASSESSMENT AND PLAN: Mr. Pascual is a pleasant 78-year-old man with history of advanced coronary artery disease, preserved left ventricular ejection fraction, and chronic atrial fibrillation, off anticoagulation by the patient's preference. He has episodic atrial fibrillation with rapid rates causing significant angina for him. There is clear correlation with his heart rates and his angina-like discomfort. For now, there is no further revascularization is planned. I was approached by Dr. Oh for further consideration for rate control. At this point, he achieves some degree of rate control and he would like to continue medical management of this. Nevertheless, I raised the option of atrioventricular maren ablation, hence indwelling pacemaker in place. I also discussed potential benefit from biventricular pacing in view of his diastolic heart failure to avoid left ventricular dyssynchrony related worsening heart failure exacerbations. For now, he is hesitant to proceed in the invasive route and he also refuses anticoagulation. I have to see him back in the office should that change. We will make arrangements for a followup visit. Angina management as per Dr. Oh. For now, continue with the initiated AV maren blocking agents including Coreg, digoxin, and diltiazem. Job ID: [id number]
[2019-02-14] MEDS: Ondansetron PF 4 MG/2 ML Vial SLOW IVP PRN (03:22)
[2019-02-14] MEDS: hydrALAZINE 20 MG/ML VIAL SLOW IVP PRN (04:06)
[2019-02-14] MEDS: Carvedilol 6.25 MG TAB PO SCH ×2 (10:09→21:41)
[2019-02-14] MEDS: hydrALAZINE 25 MG TAB PO SCH ×3 (10:09→21:41)
[2019-02-14] MEDS: Aspirin Chewable 81 MG TAB PO SCH (10:10)
[2019-02-14] MEDS: Spironolactone 25 MG TAB PO SCH (10:10)
[2019-02-14] MEDS: Diltiazem HCl CD 300 mg Capsule PO SCH (10:11)
[2019-02-14] MEDS: Digoxin 0.125 MG TAB PO SCH (10:11)
[2019-02-14] MEDS: Pantoprazole 40 MG VIAL IVP SCH (10:22)
[2019-02-14] MEDS: Sodium Chloride 0.9% (PF) 10 ML VIAL FS PRN (10:22)
[2019-02-14] MEDS ORDERED: Ondansetron ODT 8 MG TAB PO PRN (10:45)
--- NOTE | 2019-02-14 11:08 | EKG ---
Test Reason : Blood Pressure : / mmHG Vent. Rate : 082 BPM Atrial Rate : 090 BPM P-R Int : 000 ms QRS Dur : 146 ms QT Int : 418 ms P-R-T Axes : 000 018 -21 degrees QTc Int : 488 ms Atrial fibrillation with occasional ventricular-paced complexes Right bundle branch block Nonspecific ST-T changes Abnormal ECG Confirmed by DR. Izabella ROCHA ([id number]) on 02/14/2019 11:07:51 AM Referred By: Confirmed By:DR. Izabella ROCHA
[2019-02-14] MEDS: Insulin Regular 300 UNITS/3 ML VIAL SC PRN ×3 (12:00→21:39)
[2019-02-14] MEDS: Benzonatate 100 MG CAP PO SCH ×2 (18:14→23:37)
[2019-02-14] MEDS: Budesonide 0.5 MG/2 ML NEB INH SCH (18:51)
--- NOTE | 2019-02-14 19:38 | PDOC.CTH ---
Cardiology Progress Note - Subjective No new issues. - Objective Vital Signs Temp Pulse Resp BP BP Pulse Ox 02/14/19 18:47 68 18 91 L 02/14/19 15:37 66 18 120/56 L 94 L 02/14/19 15:35 66 120/56 L 02/14/19 12:03 70 20 106/53 L 94 L 02/14/19 10:35 94 L 02/14/19 10:11 83 172/78 H 02/14/19 10:09 83 172/78 H 02/14/19 08:00 98.9 F 83 20 172/78 H 92 L 02/14/19 07:54 91 L Weight 225 lb 12.054 oz 02/13/19 02/14/19 02/15/19 06:59 06:59 06:59 Intake Total 1095 1060 750 Output Total 1125 1300 220 Balance -30 -240 530 - Physical Examination General/Neuro: alert & oriented x3, NAD Neck: no JVD present Lungs: unlabored respirations Heart: RRR Abdomen: soft Extremities: + edema B (1+) - Telemetry Telemetry Rhythm: V paced, underlying afib - Labs Result Diagrams: 02/13/19 05:06 02/13/19 05:06 Troponin/CKMB CK-MB (CK-2) 1.1 ng/mL (0-6.6) 02/12/19 09:38 Troponin I 0.147 ng/mL (< 0.028) H 02/12/19 15:51 - Assessment/Plan 1. Chronic afib 2. Chronic diastolic CHF. 3. CAD, severe, non revascularizable. 4. Type 2 DM 5. CKD stage 3 6. DORIE PLAN: - Continue current meds as we have good rate control. - No anticoagulation per patients preference.
[2019-02-14] MEDS ORDERED: Insulin Glargine 25 UNITS in Pre-Filled Syringe 1 EACH SC SCH (21:00)
[2019-02-15 06:00] LABS: #Eosinphils 0.5 thou/uL (0.0-0.7); #Lymphocytes 1.5 thou/uL (1.20-3.40); #Monocytes 0.9 thou/uL (0.11-0.59); #Neutrophils 5.7 thou/uL (1.40-6.50); %Basophils 0.3 % (0.0-1.0); %Eosinophils 5.9 % (0.0-10.0); %Monocytes 10.8 % (0.0-10.0); Hemoglobin 11.7 g/dL (14.0-18.0); Mean Corpuscular HGB CONC 32.6 g/dL (32.0-36.0); Mean Corpuscular Volume 95.2 fL (78.0-98.0); Mean Platelet Volume 8.7 fL (7.4-10.4); Platelet Count 220 thou/uL (130-400); RBC Distribution Width 12.4 % (11.5-14.5); Red Blood Cell (RBC) Count 3.77 mill/uL (4.70-6.10); White Blood Cell (WBC) Count 8.6 thou/uL (4.8-10.8)
[2019-02-15] MEDS: Benzonatate 100 MG CAP PO SCH ×2 (06:11→11:25)
[2019-02-15 06:19] LABS: Anion Gap 14 mmol/L (10-20); BUN (Urea Nitrogen) 27 mg/dL (8.4-25.7); Calc. Creatinine Clearance 40 mL/min (70-130); Calcium 9.2 mg/dL (7.8-10.44); Carbon Dioxide 25 mmol/L (23-31); Chloride 97 mmol/L (98-107); Estimated GFR-MDRD 30; Glucose 274 mg/dL (83-110); Potassium 4.6 mmol/L (3.5-5.1); Sodium 131 mmol/L (136-145)
[2019-02-15] MEDS: Budesonide 0.5 MG/2 ML NEB INH SCH (06:47)
[2019-02-15] MEDS: Spironolactone 25 MG TAB PO SCH (08:35)
[2019-02-15] MEDS: Diltiazem HCl CD 300 mg Capsule PO SCH (08:35)
[2019-02-15] MEDS: Digoxin 0.125 MG TAB PO SCH (08:36)
[2019-02-15] MEDS: Aspirin Chewable 81 MG TAB PO SCH (08:36)
[2019-02-15] MEDS: hydrALAZINE 25 MG TAB PO SCH (08:36)
[2019-02-15] MEDS: Carvedilol 6.25 MG TAB PO SCH (08:37)
[2019-02-15] MEDS: Insulin Regular 300 UNITS/3 ML VIAL SC PRN ×2 (08:37→11:29)
[2019-02-15 12:45] VITALS: BP 119/61; TEMP 98
== END 2019-02-15 12:40 | disposition home or self-care (01) | DRG 309 ==
LOC: ERS 09:19 → 2NO 13:58
PROVIDERS: ADMIT Specialist; ATTEND Specialist
DX: I47.1 Supraventricular tachycardia (principal); I13.0 Hypertensive heart and chronic kidney disease with heart failure and stage 1 through stage 4 chronic kidney disease, or unspecified chronic kidney disease; N17.9 Acute kidney failure, unspecified; I50.32 Chronic diastolic (congestive) heart failure; I25.119 Atherosclerotic heart disease of native coronary artery with unspecified angina pectoris; Z66 Do not resuscitate; G47.33 Obstructive sleep apnea (adult) (pediatric); K21.9 Gastro-esophageal reflux disease without esophagitis; F41.9 Anxiety disorder, unspecified; N40.0 Benign prostatic hyperplasia without lower urinary tract symptoms; E11.40 Type 2 diabetes mellitus with diabetic neuropathy, unspecified; E11.22 Type 2 diabetes mellitus with diabetic chronic kidney disease; N18.3 Chronic kidney disease, stage 3 (moderate); I48.2 Chronic atrial fibrillation; Z79.4 Long term (current) use of insulin; Z95.1 Presence of aortocoronary bypass graft; Z95.5 Presence of coronary angioplasty implant and graft; Z88.2 Allergy status to sulfonamides; Z88.5 Allergy status to narcotic agent; Z79.82 Long term (current) use of aspirin; Z95.0 Presence of cardiac pacemaker
CPT/HCPCS: 36415; 36416; 71045; 80048; 80053; 80162; 82553; 83880; 84484; 85025; 87804; 93005; 94640; 94760; 96365; 96366; 96375; C9113; J0360; J1815; J1825; J2405; J3490; J7620; J7626

== ENCOUNTER → 2019-03-09 | Day surgery (SDC) | payer MEDICARE ==
[2019-03-06 10:55] VITALS: BMI 29.1
[~2019-03-09] MED LIST: DOPamine 400 MG/D5W 250 ML 250 ML ONE; Fentanyl 100 MCG/2 ML VIAL ONE; Heparin 10,000 UNITS/1 ML VIAL ONE; Iopamidol 370 76% 50 ML VIAL FS ONE; PROPOFOL 20 ML ONE; Propofol 500 MG/50 ML VIAL ONE; hydrALAZINE 20 MG/ML VIAL ONE
[2019-03-09 10:56] LABS: #Eosinphils 0.5 thou/uL (0.0-0.7); #Lymphocytes 1.9 thou/uL (1.20-3.40); #Monocytes 0.8 thou/uL (0.11-0.59); #Neutrophils 4.4 thou/uL (1.40-6.50); %Basophils 0.3 % (0.0-1.0); %Lymphocytes 25.2 % (21.0-51.0); %Neutrophils 57.5 % (42.0-75.0); Hemoglobin 13.3 g/dL (14.0-18.0); Mean Corpuscular HGB CONC 33.7 g/dL (32.0-36.0); Mean Corpuscular Volume 92.1 fL (78.0-98.0); Mean Platelet Volume 8.4 fL (7.4-10.4); Platelet Count 164 thou/uL (130-400); RBC Distribution Width 12.1 % (11.5-14.5); White Blood Cell (WBC) Count 7.7 thou/uL (4.8-10.8)
[2019-03-09 11:05] LABS: PTT 27.7 SEC (22.9-36.1); Prothrombin Time 13.3 SEC (12.0-14.7)
[2019-03-09 11:17] LABS: Anion Gap 13 mmol/L (10-20); BUN (Urea Nitrogen) 31 mg/dL (8.4-25.7); Calc. Creatinine Clearance 34 mL/min (70-130); Calcium 9.7 mg/dL (7.8-10.44); Carbon Dioxide 28 mmol/L (23-31); Chloride 102 mmol/L (98-107); Estimated GFR-MDRD 25; Glucose 194 mg/dL (83-110); Potassium 5.2 mmol/L (3.5-5.1); Sodium 138 mmol/L (136-145)
--- NOTE | 2019-03-09 16:32 | RAD ---
Chest one view HISTORY: Chest pain. Dyspnea. COMPARISON: 02/12/2019. FINDINGS: Cardiac silhouette is magnified and enlarged. Pulmonary vasculature is engorged with widesp read reticulonodular and nodular interstitial prominence similar in appearance to prior study. Mediastinum is midline with postoperative changes, aortic calcification, and a multilead left subclav donald cardiac electronic device. No lobar consolidation or evidence of pneumothorax. rater associate leads overlie the chest. IMPRESSION: Cardiomegaly and radiographic findings of pulmonary vascular congestion are similar to th e most recent two exams.
--- NOTE | 2019-03-09 16:55 | OP ---
DATE OF PROCEDURE: 03/09/2019 PROCEDURE PERFORMED: AV maren ablation. REASON FOR PROCEDURE: Mr. Pascual is a 78-year-old male with prior history of atrial fibrillation, coronary artery disease with prior bypass surgery, diastolic heart failure, episodic atrial fibrillation with RVR and associated with angina. He is here for AV maren ablation and plan BiV upgrade. DESCRIPTION OF PROCEDURE: The patient received propofol by Anesthesia specialist. After adequate level of sedation achieved, the right femoral venous area was prepped, anesthetized using subcutaneous lidocaine and ultrasound guidance. The right femoral vein was cannulated. An 8-Setswana short sheath was introduced through which an 8 mm nonirrigated tip ablation catheter was advanced to the right atrium, His bundle area, and right ventricle. Recording was performed in each location. The His bundle and the compact AV node areas well delineated on fluoroscopy. Repeat ablation was performed at the AV maren area and subsequently AV block was achieved. Junctional rhythm was observed at 47 to 50 beats per minute. Dopamine was administered, and any reconnection re-ablated. The pacemaker function was verified pre and post procedure. Fluoroscopy revealed no change in pericardial effusion. CONCLUSION: 1. Successful AV maren ablation. 2. Chronic atrial fibrillation. 3. Adequate pacemaker function pre and post procedure. 4. Residual junctional rhythm observed post ablation at 50 beats per minute. Job ID: [id number]
== END ==
LOC: SDC 09:37
PROVIDERS: ATTEND Internal Medicine Cardiovascular Disease
DX: I48.2 Chronic atrial fibrillation (principal); I13.0 Hypertensive heart and chronic kidney disease with heart failure and stage 1 through stage 4 chronic kidney disease, or unspecified chronic kidney disease; E11.22 Type 2 diabetes mellitus with diabetic chronic kidney disease; N18.9 Chronic kidney disease, unspecified; I50.32 Chronic diastolic (congestive) heart failure; I25.119 Atherosclerotic heart disease of native coronary artery with unspecified angina pectoris; G47.30 Sleep apnea, unspecified; Z95.0 Presence of cardiac pacemaker; Z95.2 Presence of prosthetic heart valve; Z79.4 Long term (current) use of insulin; Z79.82 Long term (current) use of aspirin; Z79.899 Other long term (current) drug therapy; Z88.2 Allergy status to sulfonamides
CPT/HCPCS: 33224; 33229; 36005; 71045; 75820; 76942; 80048; 82962; 85025; 85610; 85730; C1769; C2630; 36415; 36416; 93005; 93010; C1882; C1900; J0360; J0690; J1265; J1644; J2704; J3010; J3490

== ENCOUNTER 2019-04-28 08:44 | Outpatient (CLI) | payer MEDICARE ==
--- NOTE | 2019-04-28 09:23 | MMO ---
Bilateral MAMMO Bilat Diag DDI+HAZEL. CLINICAL HISTORY: Patient is 78 years old and is seen for diagnostic exam and palpable abnormality in the left breast. The patient has no family history of breast cancer. The patient has no personal history of cancer. VIEWS: The views performed were: bilateral craniocaudal with tomosynthesis; bilateral mediolateral oblique with tomosynthesis; and bilateral mediolateral with tomosynthesis. MAMMOGRAM FINDINGS: There are scattered fibroglandular densities. Fibfroglandular tissue in the left retroaerolar region is consitent with gynecomastia. There are no suspicious masses, suspicious calcifications, or new areas of architectural distortion. IMPRESSION: THERE IS NO MAMMOGRAPHIC EVIDENCE OF MALIGNANCY. THE RESULTS OF THIS EXAM WERE SENT TO THE PATIENT. ACR BI-RADS Category 2 - Benign finding MAMMOGRAPHY NOTE: 1. A negative mammogram report should not delay a biopsy if a dominant of clinically suspicious mass is present. 2. Approximately 10% to 15% of breast cancers are not detected by mammography. 3. Adenosis and dense breasts may obscure an underlying neoplasm. Reported by: ANGELY CONTRERAS MD Electonically Signed: [id number]
== END 2019-04-28 08:45 | disposition home or self-care (01) ==
LOC: BICMAMMO 08:44
PROVIDERS: ATTEND Specialist
DX: N62 Hypertrophy of breast (principal)
CPT/HCPCS: 77066; G0279

== ENCOUNTER 2020-07-11 06:37 | Emergency (ER) | payer MEDICARE ==
[2020-07-11] MEDS ORDERED: Sodium Bicarb 50 MEQ/50 ML Abboject 8.4% SYRINGE ONE ×2 (06:43→08:51)
[2020-07-11] MEDS ORDERED: EPINEPHrine 1 MG/10 ML Abboject SYRINGE ONE (08:51)
[2020-07-11] MEDS ORDERED: Calcium Chloride 1 GM/10 ML Abboject SYRINGE ONE (08:51)
== END 2020-07-11 06:47 | disposition expired ==
LOC: ERS 06:37
DX: I46.9 Cardiac arrest, cause unspecified (principal); I48.91 Unspecified atrial fibrillation; I25.10 Atherosclerotic heart disease of native coronary artery without angina pectoris; E11.9 Type 2 diabetes mellitus without complications; I10 Essential (primary) hypertension; Z79.4 Long term (current) use of insulin; Z79.82 Long term (current) use of aspirin; Z79.899 Other long term (current) drug therapy
CPT/HCPCS: 92950; 96374; 96375; J0171